=== PATIENT | male | born 1950 | race African-American/Black ===

== ENCOUNTER 2016-12-06 19:45 | Inpatient (IN) | payer MEDICARE, BC ==
[~2016-12-06] VITALS: Ht 180.3 cm; Wt 68.8 kg
[~2016-12-06 19:45] MED LIST: AMLO5TAB2 PO; ATOR20TA15 PO; CARV6.252 PO; FOSR1000 CHEW; RANI150T PO; SENS60TA PO
[2016-12-06 20:00] VITALS: PULSE 73; O2SAT 98
[2016-12-06 20:08] VITALS: BP 165/95; PULSE 70; RESP 12; TEMP 98.2; O2SAT 100
[2016-12-06] MEDS ORDERED: PROPOFOL 1000 MG/100 ML INJ 100 ML ONE (21:16)
[2016-12-06] MEDS ORDERED: MIDAZOLAM HCL 2 MG/2 ML VIAL IV PRN (21:30)
[2016-12-06] MEDS ORDERED: SODIUM CHLORIDE 0.9% FLUSH 10 ML FLUSH PRN (21:30)
[2016-12-06] MEDS ORDERED: RESP: ALBUTEROL 2.5 MG/IPRATROPIUM 0.5 MG NEB (PRN) INH (21:30)
[2016-12-06] MEDS ORDERED: MIDAZOLAM 100 MG/ML INJ 100 ML IV SCH (21:30)
[2016-12-06] MEDS ORDERED: METOCLOPRAMIDE HCL 10 MG/2 ML VIAL IV PRN (21:30)
[2016-12-06] MEDS ORDERED: CHLORHEXIDINE GLUCONATE 2 % 1 PACK (2 CLOTHS) TOP PRN (21:30)
[2016-12-06] MEDS ORDERED: MORPHINE SULFATE 4 MG/ML INJ IV PRN (21:30)
[2016-12-06] MEDS ORDERED: niCARdipine INJ 25 MG in SODIUM CHLOR 0.9% 250 ML INJ 250 ML IV SCH (21:30)
[2016-12-06] MEDS ORDERED: ACETAMINOPHEN 325 MG TAB PO PRN (21:30)
[2016-12-06] MEDS ORDERED: ONDANSETRON HCL 4 MG/2 ML VIAL IV PRN (21:30)
[2016-12-06] MEDS ORDERED: MISCELLANEOUS NURSING INFORMATION XX SCH (21:30)
[2016-12-06 21:57] LABS: BLOOD GAS BASE EXCESS 2.7 mmol/L (-2-2); BLOOD GAS CARBOXYHEMOGLOBIN 1.5 % (0-4); BLOOD GAS HCO3 27 mmol/L (22-26); BLOOD GAS METHEMOGLOBIN 1.3 % (0-2); BLOOD GAS O2 HGB SATURATION 97 % (90-100); BLOOD GAS OXYGEN CONTENT 12.8 Vol % (12.0-20.0); BLOOD GAS PCO2 41 mmHg (38-42); BLOOD GAS PO2 165 mmHg (61-120); BLOOD GAS TOTAL HGB 9.2 G/DL (12.0-16.0); CRITICAL VALUE NO; DRAW SITE RT RADIAL; FIO2 50 %; NUMBER OF ARTERIAL PUNCTURES 1; OXYGEN DEVICE VENTILATOR; ULNAR PULSE PRESENT; VENT SETTINGS AC/12/600/PEEP5
[2016-12-06 21:58] LABS: STAT NO
[2016-12-06 22:00] VITALS: PULSE 70
[2016-12-06] MEDS: HEPARIN SODIUM - SQ 10,000 UNITS/ML VIAL SQ SCH (23:17)
[2016-12-06] MEDS: DOCUSATE SODIUM 100 MG/10 ML UDC G-TUBE SCH (23:17)
[2016-12-06] MEDS: PROPOFOL 1000 MG/100 ML INJ 100 ML IV SCH (23:18)
[2016-12-06] MEDS ORDERED: GLUCAGON 1 MG/ML VIAL OTHER PRN (23:45)
[2016-12-07] VITALS (18 sets, daily range): BP systolic 124–178; BP diastolic 64–90; PULSE 67–96; RESP 12–26; TEMP 97–98.8; O2SAT 97–100
--- NOTE | 2016-12-07 00:16 | HHI.HP ---
HPI Service Critical Care Medicine This note is for service provided on December 06, 2016 Primary Care Physician No Primary Care Physician Admission Diagnosis Diagnosis: Travel History International Travel<30 Days: No Contact w/Intl Traveler <30 Da: No Traveled to Known Affected Are: No History of Present Illness 66-year-old male presents for respiratory distress and failure. He has end-stage renal disease on dialysis and he had dialysis today. After resting comfortably at home he developed acute respiratory distress and respiratory failure. Ambulance service came to his house. Tried to administer BiPAP but was not successful in improving his respiratory distress. He was transported [facility] emergency department for evaluation of respiratory failure. Upon arrival here in emergency room this patient was diaphoretic and could not speak in complete sentences. Obviously in respiratory distress. Both lungs showed decreased breath sounds. The patient was intubated by emergency department attending and transferred here for high level of care. Review of Systems ROS Unable to obtain patient is sedated and intubated Past Family Social History Allergies: Coded Allergies: No Known Allergies (Unverified , 12/06/16) Past Medical History End-stage renal disease on dialysis The rest unobtainable Past Surgical History Unobtainable Reported Medications Reported Meds & Active Scripts Active Reported Ranitidine (Ranitidine HCl) 150 Mg Tab 150 Mg PO BID Amlodipine (Amlodipine Besylate) 5 Mg Tab 5 Mg PO BID Fosrenol (Lanthanum Carbonate) 1,000 Mg Tab 1,000 Mg CHEW TIDPC Sensipar (Cinacalcet) 60 Mg Tab 60 Mg PO DAILY Atorvastatin (Atorvastatin Calcium) 20 Mg Tab 20 Mg PO HS Carvedilol 6.25 Mg Tab 6.25 Mg PO BID Active Ordered Medications Current Medications Medications (Trade) Dose Ordered Sig/[place] Route PRN Reason Start Time Stop Time Status Last Admin Dose Admin Pneumococcal Polyvalent Vaccine 25 mcg 25 mcg ONCE ONCE IM 12/07/16 10:00 12/07/16 10:01 Propofol 100 ml @ 0 mls/hr TITRATE IV 12/06/16 21:30 12/06/16 23:18 Nicardipine HCl/ Sodium Chloride (Cardene Inj/NS 250 ml Inj) 260 ml @ 0 mls/hr TITRATE IV 12/06/16 21:30 Sodium Chloride (NS Flush) 2 ml UNSCH PRN .XX FLUSH AFTER USING IV ACCESS 12/06/16 21:30 Sodium Chloride (NS Flush) 2 ml BID .XX 12/07/16 09:00 Acetaminophen (Tylenol) 650 mg Q6H PRN PO PAIN 1-10 AND/OR FEVER >101F 12/06/16 21:30 Morphine Sulfate (Morphine Inj) 2 mg Q2H PRN IV PAIN SCALE 6 TO 10 12/06/16 21:30 Famotidine (Pepcid Inj) 20 mg Q12HR IV PUSH 12/07/16 09:00 Midazolam HCl (Versed Inj) 2 mg Q1H PRN IV SEDATION 12/06/16 21:30 Ondansetron HCl (Zofran Inj) 4 mg Q6H PRN IV NAUSEA OR VOMITING 12/06/16 21:30 Metoclopramide HCl (Reglan Inj) 10 mg Q6H PRN IV NAUSEA OR VOMITING 12/06/16 21:30 Docusate Sodium (Colace Liq) 100 mg Q12HR G-TUBE 12/06/16 21:30 12/06/16 23:17 Heparin Sodium (Porcine) (Heparin Inj) 5,000 units Q12H SQ 12/06/16 22:00 12/06/16 23:17 Miscellaneous Information 1 Q361D XX 12/06/16 21:30 12/06/16 21:30 Chlorhexidine Gluconate (Chlorhexidine 2% Cloth) 3 pack Taper DAILY@04 TOP 12/07/16 04:00 12/03/17 03:59 Chlorhexidine Gluconate 3 pack 3 pack UNSCH PRN TOP HYGIENIC CARE 12/06/16 21:30 Midazolam HCl (Versed Inj) 100 ml @ 0 mls/hr TITRATE IV 12/06/16 21:30 Dextrose (D50w (Vial) Inj) 25 ml UNSCH PRN IV PUSH HYPOGLYCEMIA-SEE COMMENTS 12/06/16 23:45 12/07/16 00:20 Glucagon (Glucagon Inj) 1 mg UNSCH PRN OTHER HYPOGLYCEMIA-SEE COMMENTS 12/06/16 23:45 Family History Unobtainable Social History Unobtainable Physical Exam Vital Signs Vital Signs Date Time Temp Pulse Resp B/P Pulse Ox O2 Delivery O2 Flow Rate FiO2 12/06/16 20:08 98.2 70 12 165/95 100 12/06/16 20:00 98 50 Physical Exam GENERAL: Well-nourished, well-developed patient. Sedated and intubated in no acute distress SKIN: Warm and dry. HEAD: Normocephalic. EYES: No scleral icterus. No injection or drainage. NECK: Supple, trachea midline. No JVD or lymphadenopathy. CARDIOVASCULAR: Regular rate and rhythm without murmurs, gallops, or rubs. RESPIRATORY: Breath sounds equal bilaterally. No accessory muscle use. GASTROINTESTINAL: Abdomen soft, non-tender, nondistended. MUSCULOSKELETAL: No cyanosis, or edema. BACK: Nontender without obvious deformity. No CVA tenderness. EXTREMITIES: No clubbing cyanosis or edema Laboratory Laboratory Tests Test 12/06/16 21:46 Blood Gas Puncture Site RT RADIAL Blood Gas Patient Temperature 98.0 Blood Gas HCO3 27 Blood Gas Base Excess 2.7 Blood Gas Oxygen Saturation 97 Arterial Blood pH 7.43 Arterial Blood Partial 41 Pressure CO2 Arterial Blood Partial 165 Pressure O2 Arterial Blood Oxygen Content 12.8 Arterial Blood 1.5 Carboxyhemoglobin Arterial Blood Methemoglobin 1.3 Blood Gas Hemoglobin 9.2 Oxygen Delivery Device VENTILATOR Blood Gas Ventilator Setting AC/12/600/PEEP5 Blood Gas Inspired Oxygen 50 Assessment and Plan Assessment and Plan Respiratory failure - Fluid overload - Probably diastolic dysfunction from uncontrolled hypertension - Mechanical ventilation - Probable dialysis tomorrow morning - SBT after dialysis Hypertension - Resume home meds - Cardene drip - SBP goal is 160 - Repeat 2-D echo ESRD - HD per orthotics prosthetics technician Dyslipidemia - Resume home dose of statin DVT GI prophylaxis - Subcutaneous heparin and Pepcid Critical Care: The total critical care time was 35 minutes. Time to perform other separately billable procedures was not included in the critical care time. Ritesh Chen MD December 07, 2016 00:16
[2016-12-07] MEDS: DEXTROSE 50% IN WATER 50 ML VIAL(D50) IV PUSH PRN ×2 (00:20→06:22)
[2016-12-07 03:54] LABS: AUTOMATED NEUTROPHIL # 4.1 TH/MM3 (1.8-7.7); BASOPHIL % 0.5 % (0.0-2.0); EOSINOPHIL # 0.1 TH/MM3 (0-0.4); EOSINOPHIL % 1.7 % (0.0-4.0); HEMATOCRIT 26.6 % (39.0-51.0); HEMO FLAGS DIFF FINAL; LYMPH % 21.7 % (9.0-44.0); LYMPHOCYTE # 1.3 TH/MM3 (1.0-4.8); MEAN CELL VOLUME 84.1 FL (80.0-100.0); MEAN CORPUSCULAR HEMOGLOBIN 27.7 PG (27.0-34.0); MEAN CORPUSCULAR HGB CONC 32.9 % (32.0-36.0); MONO % 9.5 % (0.0-8.0); NEUT % 66.6 % (16.0-70.0); PLATELET COUNT 143 TH/MM3 (150-450); RED BLOOD COUNT 3.17 MIL/MM3 (4.50-5.90); RED CELL DISTRIBUTION WIDTH 17.3 % (11.6-17.2); WHITE BLOOD COUNT 6.2 TH/MM3 (4.0-11.0)
[2016-12-07] MEDS: CHLORHEXIDINE GLUCONATE 2 % 1 PACK (2 CLOTHS) TOP SCH (04:00)
[2016-12-07 04:02] LABS: PROTHROMBIN TIME - PATIENT 11.6 SEC (9.8-11.6)
[2016-12-07 04:16] LABS: ALT (GPT) 19 U/L (12-78); ANION GAP 8 MEQ/L (5-15); AST (GOT) 18 U/L (15-37); BICARBONATE 28.6 MEQ/L (21.0-32.0); BLOOD UREA NITROGEN 17 MG/DL (7-18); CHLORIDE 103 MEQ/L (98-107); MAGNESIUM 1.9 MG/DL (1.5-2.5); POTASSIUM 3.6 MEQ/L (3.5-5.1); SODIUM (NA) 140 MEQ/L (136-145)
[2016-12-07 04:18] LABS: ALKALINE PHOSPHATASE 88 U/L (45-117); GLOMERULAR FILTRATION RATE 9 ML/MIN (>89); TOTAL BILIRUBIN ADULT 0.4 MG/DL (0.2-1.0)
[2016-12-07] MEDS: PROPOFOL 1000 MG/100 ML INJ 100 ML IV SCH (06:22)
--- NOTE | 2016-12-07 06:53 | RADRPT ---
EXAM DATE/TIME: 12/07/2016 05:53 [facility] COMPARISON: CHEST SINGLE AP, December 06, 2016, 16:41. INDICATIONS : Shortness of breath. MEDICAL HISTORY : None. SURGICAL HISTORY : None. ENCOUNTER: Subsequent ACUITY: 2 days PAIN SCORE: 0/10 LOCATION: Bilateral chest FINDINGS: A single portable frontal view the chest shows the tip of the endotracheal tube 3 cm from the victorina. Nasogastric tube courses off the inferior margin of the film. A new left lower lobe consolidation is observed. Tiny left effusion is new. Right lung is clear. Heart is at the upper limits of normal. CONCLUSION: New left lower lobe infiltrate and left effusion. Eb Bonner Jr., MD on December 07, 2016 at 6:51 Board Certified Radiologist. This report was verified electronically.
[2016-12-07] MEDS ORDERED: INSULIN ASPART SUPPLEMENTAL SCALE SQ SCH (07:00)
[2016-12-07] MEDS: FAMOTIDINE 20 MG/2 ML VIAL IV PUSH SCH ×2 (08:08→20:36)
[2016-12-07] MEDS: DOCUSATE SODIUM 100 MG/10 ML UDC G-TUBE SCH ×2 (08:08→20:36)
[2016-12-07] MEDS: SODIUM CHLORIDE 0.9% FLUSH 10 ML FLUSH SCH ×2 (08:09→20:36)
[2016-12-07] MEDS ORDERED: amLODIPine BESYLATE 5 MG TAB PO SCH (09:00)
[2016-12-07] MEDS: cefTRIAXone INJ 1,000 MG in SODIUM CHLORIDE 0.9% INJ 100 ML IV SCH (09:21)
[2016-12-07] MEDS: HEPARIN SODIUM - SQ 10,000 UNITS/ML VIAL SQ SCH ×2 (09:21→20:36)
[2016-12-07] MEDS ORDERED: PNEUMOCOCCAL POLYVALENT INJ 25 MCG/0.5 ML SYR IM ONE (10:00)
[2016-12-07] MEDS: INSULIN ASPART SUPPLEMENTAL SCALE SQ SCH ×2 (13:00→19:00)
[2016-12-07 13:06] LABS: BLOOD GAS BASE EXCESS 2.8 mmol/L (-2-2); BLOOD GAS CARBOXYHEMOGLOBIN 1.8 % (0-4); BLOOD GAS HCO3 26 mmol/L (22-26); BLOOD GAS METHEMOGLOBIN 1.3 % (0-2); BLOOD GAS O2 HGB SATURATION 95 % (90-100); BLOOD GAS OXYGEN CONTENT 13.3 Vol % (12.0-20.0); BLOOD GAS PCO2 38 mmHg (38-42); BLOOD GAS PO2 101 mmHg (61-120); BLOOD GAS TOTAL HGB 9.8 G/DL (12.0-16.0); CRITICAL VALUE NO; DRAW SITE RT RADIAL; FIO2 35 %; NUMBER OF ARTERIAL PUNCTURES 1; OXYGEN DEVICE VENTILATOR; STAT NO; TEMP CORR TO 98.6; ULNAR PULSE PRESENT; VENT SETTINGS CPAP/10/+5
[2016-12-07] MEDS ORDERED: SODIUM CHLOR 0.9% 1000 ML INJ 1,000 ML IV PRN ×3 (14:37)
[2016-12-07] MEDS ORDERED: ACETAMINOPHEN 325 MG TAB PO PRN (14:45)
[2016-12-07] MEDS ORDERED: GENTAMICIN SULFATE (DIALYSIS USE ONLY) 20 MG/2 ML VIAL IV PRN (14:45)
[2016-12-07] MEDS ORDERED: SODIUM CHLORIDE 0.9% FLUSH 10 ML FLUSH IV FLUSH PRN (14:45)
[2016-12-07] MEDS ORDERED: ONDANSETRON HCL 4 MG/2 ML VIAL IV PRN (14:45)
[2016-12-07] MEDS ORDERED: cloNIDine HCL 0.1 MG TAB PO PRN (14:45)
[2016-12-07] MEDS ORDERED: MANNITOL 12.5 GM/50 ML VIAL IV PRN (14:45)
[2016-12-07] MEDS ORDERED: ALBUMIN HUMAN 25% 25 GM/100 ML BAGP IV PRN (14:45)
[2016-12-07] MEDS ORDERED: HEPARIN SODIUM - IV 10,000 UNITS/10 ML VIAL PRN (14:45)
[2016-12-07] MEDS ORDERED: NITROGLYCERIN 0.4 MG SL 25 TABS/BTL SL PRN (14:45)
[2016-12-07] MEDS ORDERED: diphenhydrAMINE HCL 25 MG CAP PO PRN (14:45)
[2016-12-07] MEDS ORDERED: HEPARIN SODIUM - IV 10,000 UNITS/10 ML VIAL IVF PRN (14:45)
--- NOTE | 2016-12-07 15:30 | EC ---
Study Study Date:12/07/2016 STUDY CONCLUSIONS SUMMARY - Left ventricle: The cavity size was normal. Wall thickness was normal. Systolic function was normal. The estimated ejection fraction was in the range of 50% to 55%. Wall motion was normal; there were no regional wall motion abnormalities. - Aortic valve: Mild to moderate regurgitation. - Mitral valve: Mild regurgitation. - Right ventricle: The cavity size was mildly dilated. Wall thickness was normal. If LV function is below 40, please consider prescribing an ACEI or ARB or document rationale for non-use. PROCEDURE DATA STUDY STATUS: Elective. Procedure: Transthoracic echocardiography. Image quality was good. Scanning was performed from the parasternal, apical, and subcostal acoustic windows. Study completion: The patient tolerated the procedure well. Transthoracic echocardiography. M-mode, complete 2D, complete spectral Doppler, and color Doppler. Patient status: Inpatient. CARDIAC ANATOMY LEFT VENTRICLE: The cavity size was normal. Wall thickness was normal. Systolic function was normal. The estimated ejection fraction was in the range of 50% to 55%. Wall motion was normal; there were no regional wall motion abnormalities. AORTIC VALVE: Trileaflet; normal thickness leaflets. Doppler: Transvalvular velocity was within the normal range. There was no stenosis. Mild to moderate regurgitation. Peak gradient: 14mm Hg (S). AORTA: Aortic root: The aortic root was normal in size. MITRAL VALVE: Structurally normal valve. Doppler: Transvalvular velocity was within the normal range. There was no evidence for stenosis. Mild regurgitation. Peak gradient: 4mm Hg (D). LEFT ATRIUM: The atrium was normal in size. RIGHT VENTRICLE: The cavity size was mildly dilated. Wall thickness was normal. PULMONIC VALVE: Doppler: Transvalvular velocity was within the normal range. There was no evidence for stenosis. No regurgitation. TRICUSPID VALVE: Structurally normal valve. Doppler: Transvalvular velocity was within the normal range. No regurgitation. PULMONARY ARTERY: The main pulmonary artery was normal-sized. Systolic pressure was within the normal range. RIGHT ATRIUM: The atrium was normal in size. PERICARDIUM: There was no pericardial effusion. SYSTEMIC VEINS: Inferior vena cava: The vessel was normal in size. BASIC MEASUREMENTS ADULT Normal Left ventricle LV internal dimension, ED, chordal level, *55.6 mm 43-52 PLAX LV internal dimension, ES, chordal level, *44.6 mm 23-38 PLAX Fractional shortening, chordal level, PLAX *20 % >29 LV posterior wall thickness, ED 8.07 mm IVS/LVPW ratio, ED 1.24 <1.3 Ventricular septum Septal thickness, ED 9.99 mm Left atrium Anterior-posterior dimension 36 mm Right ventricle RV internal dimension, ED, PLAX 28.1 mm 19-38 DOPPLER MEASUREMENTS ADULT Normal Main pulmonary artery Pressure, S 23 mm Hg =30 Aortic valve Peak velocity, S 185 cm/s Peak gradient, S 14 mm Hg Mitral valve Peak E-wave velocity 94.3 cm/s Peak A-wave velocity 71.3 cm/s Peak gradient, D 4 mm Hg Peak E/A ratio 1.3 Maximal regurgitant velocity 438 cm/s Tricuspid valve Regurgitant peak velocity 214 cm/s Peak RV-RA gradient, S 18 mm Hg Maximal regurgitant velocity 214 cm/s Systemic veins Estimated CVP 5 mm Hg Right ventricle RV pressure, S 23 mm Hg <30 LEGEND: Mean values are shown as u=mean value. Asterisk (*) sewell values outside specified normal range. Prepared and signed by Crystal Yates [id number]
[2016-12-07] MEDS: RESP: ALBUTEROL 2.5 MG/IPRATROPIUM 0.5 MG NEB (SCH) NEB ×3 (16:10→23:54)
--- NOTE | 2016-12-07 19:27 | PD.CONS ---
HPI Service Nephrology Consult Requested By Dr. Chen Reason for Consult ESRD on HD Primary Care Physician No Primary Care Physician History of Present Illness The patient is a 66 yo AA male who was EVAC'd to the [facility] emergency room 12/06/16 after his regularly scheduled HD as he developed sudden shortness of breath. Upon arrival to the ED, he was intubated and transported to [facility] for further care. He says he had his regular scheduled HD this past Tuesday for an uneventful session. Denies any recently missed treatments and states that his typical UF is 1-2L. He typically dialyzes at [facility] in [place] and has been on HD x12 years. He has minimal UOP. His BP has been elevated recently-- no recent changes in medications to his knowledge. During interview, the patient was still intubated but not sedated with plans to extubate soon. Ex- and son present during exam. (Pastora Crow) Review of Systems Respiratory: COMPLAINS OF: Cough, Sputum production, Shortness of breath ( Pastora Crow) Past Family Social History Allergies: Coded Allergies: No Known Allergies (Unverified , 12/06/16) Past Medical History ESRD on HD HTN Past Surgical History AVF placement Reported Medications Reported Meds & Active Scripts Active Reported Ranitidine (Ranitidine HCl) 150 Mg Tab 150 Mg PO BID Amlodipine (Amlodipine Besylate) 5 Mg Tab 5 Mg PO BID Fosrenol (Lanthanum Carbonate) 1,000 Mg Tab 1,000 Mg CHEW TIDPC Sensipar (Cinacalcet) 60 Mg Tab 60 Mg PO DAILY Atorvastatin (Atorvastatin Calcium) 20 Mg Tab 20 Mg PO HS Carvedilol 6.25 Mg Tab 6.25 Mg PO BID Active Ordered Medications Current Medications Medications (Trade) Dose Ordered Sig/[place] Route Start Time Stop Time Status Last Admin (NS Flush) 2 ml UNSCH PRN .XX 12/06/16 21:30 (NS Flush) 2 ml BID .XX 12/07/16 09:00 12/07/16 08:09 (Tylenol) 650 mg Q6H PRN PO 12/06/16 21:30 (Morphine Inj) 2 mg Q2H PRN IV 12/06/16 21:30 (Pepcid Inj) 20 mg Q12HR IV PUSH 12/07/16 09:00 12/07/16 08:08 (Zofran Inj) 4 mg Q6H PRN IV 12/06/16 21:30 (Reglan Inj) 10 mg Q6H PRN IV 12/06/16 21:30 (Colace Liq) 100 mg Q12HR G-TUBE 12/06/16 21:30 12/07/16 08:08 (Heparin Inj) 5,000 units Q12H SQ 12/06/16 22:00 12/07/16 09:21 Miscellaneous Information 1 Q361D XX 12/06/16 21:30 12/06/16 21:30 (Chlorhexidine 2% Cloth) 3 pack Taper DAILY@04 TOP 12/07/16 04:00 12/03/17 03:59 12/07/16 04:00 (Chlorhexidine 2% Cloth) 3 pack UNSCH PRN TOP 12/06/16 21:30 (D50w (Vial) Inj) 25 ml UNSCH PRN IV PUSH 12/06/16 23:45 12/07/16 06:22 (Glucagon Inj) 1 mg UNSCH PRN OTHER 12/06/16 23:45 (NovoLOG SUPPLEMENTAL SCALE) 1 Q6H SQ 12/07/16 13:00 (Norvasc) 5 mg DAILY PO 12/07/16 09:00 12/07/16 09:21 Hydralazine HCl 10 mg 10 mg Q6H PRN IV PUSH 12/07/16 09:00 (Rocephin Inj/NS Inj) 100 ml @ 200 mls/hr Q24H IV 12/07/16 09:00 12/07/16 09:21 Atorvastatin Calcium 20 mg 20 mg HS PO 12/07/16 21:00 (NS 1000 ml Inj) 1,000 ml @ 0 mls/hr Q0M PRN IV 12/07/16 14:37 Heparin Sodium (Porcine) 8000 units 8,000 units UNSCH PRN IVF 12/07/16 14:45 Sodium Chloride 1,000 ml @ 200 mls/hr Q5H PRN IV 12/07/16 14:37 (NS 1000 ml Inj) 1,000 ml @ 0 mls/hr Q0M PRN IV 12/07/16 14:37 (Mannitol Inj) 12.5 gm UNSCH PRN IV 12/07/16 14:45 (Albumin 25% Inj) 25 gm UNSCH PRN IV 12/07/16 14:45 (NS Flush) 5 ml UNSCH PRN IV FLUSH 12/07/16 14:45 (Heparin Inj) UNSCH PRN .XX 12/07/16 14:45 (Gentamicin (Dialysis) Inj) 20 mg UNSCH PRN IV 12/07/16 14:45 (Zofran Inj) 4 mg UNSCH PRN IV 12/07/16 14:45 (Tylenol) 650 mg UNSCH PRN PO 12/07/16 14:45 (Benadryl) 25 mg UNSCH PRN PO 12/07/16 14:45 (Nitrostat Sl) 0.4 mg UNSCH PRN SL 12/07/16 14:45 (Catapres) 0.1 mg UNSCH PRN PO 12/07/16 14:45 (Gelfoam 12 Mm/7 Mm Top) 1 foam UNSCH PRN TOP 12/07/16 14:45 Family History DM in mother and father No one with ESRD to knowledge Social History Denies tobacco use No illicits No EtOH (Pastora Crow) Physical Exam Vital Signs Vital Signs Date Time Temp Pulse Resp B/P Pulse Ox O2 Delivery O2 Flow Rate FiO2 12/07/16 18:00 90 12/07/16 16:13 98 Nasal Cannula 4.00 12/07/16 16:00 90 12/07/16 16:00 98.8 90 20 157/73 98 12/07/16 14:00 87 12/07/16 13:20 97 Nasal Cannula 4 12/07/16 12:00 98.6 12/07/16 12:00 82 12/07/16 10:00 79 12/07/16 09:39 35 12/07/16 09:39 100 35 12/07/16 08:00 73 12/07/16 08:00 98.4 12/07/16 06:00 69 12/07/16 04:22 99 35 12/07/16 04:00 67 12/07/16 04:00 97.0 67 12 135/65 100 12/07/16 02:00 68 12/07/16 01:36 99 50 12/07/16 00:00 97.5 71 12 124/64 100 12/07/16 00:00 71 12/06/16 22:00 70 12/06/16 20:08 98.2 70 12 165/95 100 12/06/16 20:00 73 12/06/16 20:00 98 50 Physical Exam GENERAL: Intubated, but not sedated. NAD. Resting comfortably and able to answer questions by writing or nodding. SKIN: Warm and dry. HEAD: Atraumatic. Normocephalic. EYES: Pupils equal and round. No scleral icterus. No injection or drainage. ENT: No nasal bleeding or discharge. Mucous membranes pink and moist. NECK: Trachea midline. No JVD. CARDIOVASCULAR: Regular rate and rhythm. RESPIRATORY: No accessory muscle use. Decreased breath sounds bibasilar. No rales or crackles.. GASTROINTESTINAL: Abdomen soft, non-tender, nondistended. Hepatic and splenic margins not palpable. MUSCULOSKELETAL: Extremities without clubbing, cyanosis, or edema. No obvious deformities. NEUROLOGICAL: Awake and alert. PSYCHIATRIC: Appropriate mood and affect; insight and judgment normal. Laboratory Laboratory Tests Test 12/06/16 12/07/16 12/07/16 12/07/16 21:46 00:50 02:36 09:01 Blood Gas Puncture Site RT RADIAL Blood Gas Patient Temperature 98.0 Blood Gas HCO3 27 Blood Gas Base Excess 2.7 Blood Gas Oxygen Saturation 97 Arterial Blood pH 7.43 Arterial Blood Partial 41 Pressure CO2 Arterial Blood Partial 165 Pressure O2 Arterial Blood Oxygen Content 12.8 Arterial Blood 1.5 Carboxyhemoglobin Arterial Blood Methemoglobin 1.3 Blood Gas Hemoglobin 9.2 Oxygen Delivery Device VENTILATOR Blood Gas Ventilator Setting AC/12/600/PEEP5 Blood Gas Inspired Oxygen 50 Nasal Screen MRSA (PCR) MRSA NOT DETECTED White Blood Count 6.2 Red Blood Count 3.17 Hemoglobin 8.8 Hematocrit 26.6 Mean Corpuscular Volume 84.1 Mean Corpuscular Hemoglobin 27.7 Mean Corpuscular Hemoglobin 32.9 Concent Red Cell Distribution Width 17.3 Platelet Count 143 Mean Platelet Volume 8.6 Neutrophils (%) (Auto) 66.6 Lymphocytes (%) (Auto) 21.7 Monocytes (%) (Auto) 9.5 Eosinophils (%) (Auto) 1.7 Basophils (%) (Auto) 0.5 Neutrophils # (Auto) 4.1 Lymphocytes # (Auto) 1.3 Monocytes # (Auto) 0.6 Eosinophils # (Auto) 0.1 Basophils # (Auto) 0.0 CBC Comment DIFF FINAL Differential Comment Prothrombin Time 11.6 Prothromb Time International 1.0 Ratio Sodium Level 140 Potassium Level 3.6 Chloride Level 103 Carbon Dioxide Level 28.6 Anion Gap 8 Blood Urea Nitrogen 17 Creatinine 7.80 Estimat Glomerular Filtration 9 Rate Random Glucose 66 Calcium Level 8.6 Phosphorus Level 3.2 Magnesium Level 1.9 Total Bilirubin 0.4 Aspartate Amino Transf 18 (AST/SGOT) Alanine Aminotransferase 19 (ALT/SGPT) Alkaline Phosphatase 88 Troponin I 0.10 0.08 Total Protein 6.2 Albumin 2.7 Total Creatine Kinase 88 Test 12/07/16 12/07/16 12:53 16:26 Blood Gas Puncture Site RT RADIAL Blood Gas Patient Temperature 98.6 Blood Gas HCO3 26 Blood Gas Base Excess 2.8 Blood Gas Oxygen Saturation 95 Arterial Blood pH 7.46 Arterial Blood Partial 38 Pressure CO2 Arterial Blood Partial 101 Pressure O2 Arterial Blood Oxygen Content 13.3 Arterial Blood 1.8 Carboxyhemoglobin Arterial Blood Methemoglobin 1.3 Blood Gas Hemoglobin 9.8 Oxygen Delivery Device VENTILATOR Blood Gas Ventilator Setting CPAP/10/+5 Blood Gas Inspired Oxygen 35 25-Hydroxy Vitamin D Total 8.3 Parathyroid Hormone (Intact) 675.0 Date/Time Procedure Status Source Growth 12/07/16 09:45 Gram Stain Received Sputum Endotracheal Pending 12/07/16 09:45 Sputum Culture Received Sputum Endotracheal Pending (Pastora Crow) Result Diagram: 12/07/16 0236 12/07/16 0236 Imaging Last Impressions Chest X-Ray 12/07/16 0000 Signed Impressions: Service Date/Time: Wednesday, December 07, 2016 05:53 - CONCLUSION: New left lower lobe infiltrate and left effusion. Eb Bonner Jr., MD (Pastora Crow) Assessment and Plan Problem List: (1) ESRD (end stage renal disease) on dialysis Plan: Will continue on HD MWF as before. No emergent need for HD today. To continue on Fosrenol & Sensipar as outpatient. Will f/u with CBC and Fe panel. Epogen as indicated if needed. Medications should be adjusted for the patient's ESRD. Avoid gadolinium. (2) Respiratory failure with hypoxia Plan: CXR reviewed. No overt failure or vascular congestion. Echo reviewed. Infiltrate--PNA? Will defer to CC (3) Hypertension Plan: Improved today. Monitor and adjust to keep BP <150/90. (Pastora Crow) Assessment and Plan The exam, history, and the medical decision-making described in the above note were completed with the assistance of the PA-C. I reviewed and agree with the findings presented. I attest that I had a [id number] encounter with the patient on the same day, and personally performed and documented my assessment and findings in the medical record. (Speedy Johnson MD) Pastora Crow December 07, 2016 19:27 Speedy Johnson MD December 08, 2016 16:58
[2016-12-07] MEDS: hydrALAZINE HCL 20 MG/ML VIAL IV PUSH PRN (20:37)
[2016-12-07] MEDS ORDERED: ATORVASTATIN 20 MG TAB PO SCH (21:00)
[2016-12-08] VITALS (28 sets, daily range): BP systolic 152–204; BP diastolic 71–101; PULSE 76–113; RESP 16–46; TEMP 98.1–99.3; O2SAT 93–100
[2016-12-08] MEDS: INSULIN ASPART SUPPLEMENTAL SCALE SQ SCH ×4 (01:00→18:02)
[2016-12-08] MEDS: RESP: ALBUTEROL 2.5 MG/IPRATROPIUM 0.5 MG NEB (SCH) NEB ×5 (03:34→20:52)
[2016-12-08] MEDS: CHLORHEXIDINE GLUCONATE 2 % 1 PACK (2 CLOTHS) TOP SCH (04:00)
[2016-12-08 04:15] LABS: BASOPHIL % 0.4 % (0.0-2.0); EOSINOPHIL # 0.2 TH/MM3 (0-0.4); EOSINOPHIL % 2.7 % (0.0-4.0); HEMATOCRIT 28.7 % (39.0-51.0); HEMO FLAGS DIFF FINAL; LYMPH % 21.1 % (9.0-44.0); LYMPHOCYTE # 1.3 TH/MM3 (1.0-4.8); MEAN CELL VOLUME 82.8 FL (80.0-100.0); MEAN CORPUSCULAR HEMOGLOBIN 27.9 PG (27.0-34.0); MEAN CORPUSCULAR HGB CONC 33.8 % (32.0-36.0); MONO % 10.2 % (0.0-8.0); NEUT % 65.6 % (16.0-70.0); PLATELET COUNT 171 TH/MM3 (150-450); RED BLOOD COUNT 3.47 MIL/MM3 (4.50-5.90); RED CELL DISTRIBUTION WIDTH 17.1 % (11.6-17.2); WHITE BLOOD COUNT 6.2 TH/MM3 (4.0-11.0)
[2016-12-08 04:49] LABS: ANION GAP 11 MEQ/L (5-15); BICARBONATE 27.7 MEQ/L (21.0-32.0); BLOOD UREA NITROGEN 28 MG/DL (7-18); CHLORIDE 100 MEQ/L (98-107); FERRITIN 776 NG/ML (26-388); GLOMERULAR FILTRATION RATE 6 ML/MIN (>89); POTASSIUM 3.8 MEQ/L (3.5-5.1); SODIUM (NA) 139 MEQ/L (136-145); TRANSFERRIN IRON PROFILE 116 MG/DL (200-360)
[2016-12-08] MEDS: hydrALAZINE HCL 20 MG/ML VIAL IV PUSH PRN ×2 (06:39→12:52)
[2016-12-08] MEDS: SODIUM CHLORIDE 0.9% FLUSH 10 ML FLUSH SCH ×2 (09:00→21:00)
--- NOTE | 2016-12-08 10:34 | HHI.CCPN ---
Subjective Remarks/Hospital Course The patient is a 66 yo AA male who was EVAC'd to the [facility] emergency room 12/06/16 after his regularly scheduled HD as he developed sudden shortness of breath. Upon arrival to the ED, he was intubated and transported to [facility] for further care. He says he had his regular scheduled HD this past Tuesday for an uneventful session. Denies any recently missed treatments and states that his typical UF is 1-2L. He typically dialyzes at [facility] in [place] and has been on HD x12 years. He has minimal UOP. His BP has been elevated recently-- no recent changes in medications to his knowledge. During interview, the patient was still intubated but not sedated with plans to extubate soon. Subjective 12/08: Resting in bed in no acute distress. Denies chest pain shortness of breath. Objective Vital Signs Date Time Temp Pulse Resp B/P Pulse Ox O2 Delivery O2 Flow Rate FiO2 12/08/16 08: 94 21 12/08/16 06:00 78 12/08/16 04:00 98.1 18 156/75 12/07/16 19:52 Nasal Cannula 2.00 Intake and Output 12/07/16 12/07/16 12/08/16 08:00 16:00 00:00 Intake Total 339 ml 328 ml 120 ml Output Total 0 ml 0 ml Balance 339 ml 328 ml 120 ml Result Diagram: 12/08/16 0321 12/08/16 0321 Other Results Microbiology Date/Time Procedure Status Source Growth 12/07/16 09:45 Gram Stain - Final Resulted Sputum Endotracheal 12/07/16 09:45 Sputum Culture Resulted Sputum Endotracheal Pending Laboratory Tests Test 12/07/16 12:53 Blood Gas Puncture Site RT RADIAL Blood Gas Patient Temperature 98.6 Blood Gas HCO3 26 mmol/L (22-26) Blood Gas Base Excess 2.8 mmol/L (-2-2) Blood Gas Oxygen Saturation 95 % (90-100) Arterial Blood pH 7.46 (7.380-7.420) Arterial Blood Partial 38 mmHg (38-42) Pressure CO2 Arterial Blood Partial 101 mmHg Pressure O2 (61-120) Arterial Blood Oxygen Content 13.3 Vol % (12.0-20.0) Arterial Blood 1.8 % (0-4) Carboxyhemoglobin Arterial Blood Methemoglobin 1.3 % (0-2) Blood Gas Hemoglobin 9.8 G/DL (12.0-16.0) Oxygen Delivery Device VENTILATOR Blood Gas Ventilator Setting CPAP/10/+5 Blood Gas Inspired Oxygen 35 % Imaging Last Impressions Chest X-Ray 12/07/16 0000 Signed Impressions: Service Date/Time: Wednesday, December 07, 2016 05:53 - CONCLUSION: New left lower lobe infiltrate and left effusion. Eb Bonner Jr., MD Objective Remarks GENERAL: Well-nourished, well-developed patient. Sedated and intubated in no acute distress SKIN: Warm and dry. HEAD: Normocephalic. EYES: No scleral icterus. No injection or drainage. NECK: Supple, trachea midline. No JVD or lymphadenopathy. CARDIOVASCULAR: Regular rate and rhythm without murmurs, gallops, or rubs. RESPIRATORY: Breath sounds equal bilaterally. No accessory muscle use. GASTROINTESTINAL: Abdomen soft, non-tender, nondistended. MUSCULOSKELETAL: No cyanosis, or edema. BACK: Nontender without obvious deformity. No CVA tenderness. EXTREMITIES: No clubbing cyanosis or edema A/P Assessment and Plan Neuro/Psych: Acetaminophen for fever CV: Hypertensive crisis Dyslipidemia 2-D echocardiogram revealed EF 50-55%. Moderate AR. Mild MR. Resume Coreg 6.25 twice a day Norvasc 5 mg by mouth twice a day As needed hydralazine/Nitropaste as clonidine Resp: Currently in room air. Chest x-ray with left lower lobe pleural effusion/infiltrate. See ID GI: Gastroesophageal reflux disease On Zantac 150 by mouth twice a day at home for gastroesophageal reflux disease. Renal diet : No [place] indicated Endo: Sliding-scale insulin if indicated Renal: End-stage renal disease on hemodialysis Resume Sensipar and phosphate lowering binder. Heme: Normocytic anemia with anemia of chronic kidney disease No indications for transfusion of blood products at this time ID: Currently on Rocephin day #2. FEN: Replace electrolytes as clinically indicated MSK: Out of bed/PT evaluate and treat Access - Peripheral IV Prophylax - GI - Zantac - DVT - SCD/heparin subcutaneous Critical Care: The total care time was 30 minutes. Time to perform other separately billable procedures was not included in the critical care time. Patient is stable from PICC standpoint. We'll assign care to hospitalist in a.m. 12/09. Transfer to floor Respiratory failure - Fluid overload - Probably diastolic dysfunction from uncontrolled hypertension - Mechanical ventilation - Probable dialysis tomorrow morning - SBT after dialysis Hypertension - Resume home meds - Cardene drip - SBP goal is 160 - Repeat 2-D echo ESRD - HD per back tender paper machine Dyslipidemia - Resume home dose of statin DVT GI prophylaxis - Subcutaneous heparin and Pepcid Critical Care: The total critical care time was 35 minutes. Time to perform other separately billable procedures was not included in the critical care time. Vipul Mcgill MD December 08, 2016 10:34
[2016-12-08] MEDS ORDERED: NITROGLYCERIN 2% OINT 1 GM PACKET TOPICAL PRN (11:00)
--- NOTE | 2016-12-08 11:04 | PD.TRANSFR ---
Transfer Summary Admission Date December 06, 2016 at 19:56 Transfer Date: December 08, 2016 Admitting Diagnosis End-stage renal disease on hemodialysis Diagnoses: (1) CHF (congestive heart failure) Diagnosis: Principal (2) Hypertension Diagnosis: Principal (3) ESRD (end stage renal disease) on dialysis Diagnosis: Principal (4) Respiratory failure with hypoxia Diagnosis: Principal Significant Findings 2-D echo - EF 50-55%. Moderate RV dilatation Transfer Summary/Subjective Acetaminophen for fever CV: Hypertensive crisis Dyslipidemia 2-D echocardiogram revealed EF 50-55%. Moderate AR. Mild MR. Resume Coreg 6.25 twice a day Norvasc 5 mg by mouth twice a day As needed hydralazine/Nitropaste as clonidine Resp: Currently in room air. GI: Gastroesophageal reflux disease On Zantac 150 by mouth twice a day at home for gastroesophageal reflux disease. Renal diet : No [place] indicated Endo: Sliding-scale insulin if indicated Renal: End-stage renal disease on hemodialysis Resume Sensipar and phosphate lowering binder. Heme: Normocytic anemia with anemia of chronic kidney disease No indications for transfusion of blood products at this time ID: Currently on Rocephin day #2. FEN: Replace electrolytes as clinically indicated MSK: Out of bed/PT evaluate and treat Access - Peripheral IV Prophylax - GI - Zantac - DVT - SCD/heparin subcutaneous Critical Care: The total care time was 30 minutes. Time to perform other separately billable procedures was not included in the critical care time. Patient is stable from PICC standpoint. We'll assign care to hospitalist in a.m. 12/09. Transfer to floor Respiratory failure - Fluid overload - Probably diastolic dysfunction from uncontrolled hypertension - Mechanical ventilation - Probable dialysis tomorrow morning - SBT after dialysis Hypertension - Resume home meds - Cardene drip - SBP goal is 160 - Repeat 2-D echo ESRD - HD per elementary supervisor Dyslipidemia - Resume home dose of statin DVT GI prophylaxis - Subcutaneous heparin and Pepcid Critical Care: The total critical care time was 35 minutes. Time to perform other separately billable procedures was not included in the critical care time. Objective Vital Signs Date Time Temp Pulse Resp B/P Pulse Ox O2 Delivery O2 Flow Rate FiO2 12/08/16 08:17 94 21 12/08/16 06:00 78 12/08/16 04:00 98.1 18 156/75 12/07/16 19:52 Nasal Cannula 2.00 Intake and Output 12/07/16 12/07/16 12/08/16 08:00 16:00 00:00 Intake Total 339 ml 328 ml 120 ml Output Total 0 ml 0 ml Balance 339 ml 328 ml 120 ml Result Diagram: 12/08/16 0321 12/08/16 0321 Other Results Laboratory Tests Test 12/07/16 12:53 Blood Gas Puncture Site RT RADIAL Blood Gas Patient Temperature 98.6 Blood Gas HCO3 26 mmol/L (22-26) Blood Gas Base Excess 2.8 mmol/L (-2-2) Blood Gas Oxygen Saturation 95 % (90-100) Arterial Blood pH 7.46 (7.380-7.420) Arterial Blood Partial 38 mmHg (38-42) Pressure CO2 Arterial Blood Partial 101 mmHg Pressure O2 (61-120) Arterial Blood Oxygen Content 13.3 Vol % (12.0-20.0) Arterial Blood 1.8 % (0-4) Carboxyhemoglobin Arterial Blood Methemoglobin 1.3 % (0-2) Blood Gas Hemoglobin 9.8 G/DL (12.0-16.0) Oxygen Delivery Device VENTILATOR Blood Gas Ventilator Setting CPAP/10/+5 Blood Gas Inspired Oxygen 35 % Imaging Last Impressions Chest X-Ray 12/07/16 0000 Signed Impressions: Service Date/Time: Wednesday, December 07, 2016 05:53 - CONCLUSION: New left lower lobe infiltrate and left effusion. Eb Bonner Jr., MD Objective Remarks GENERAL: Well-nourished, well-developed patient. Sedated and intubated in no acute distress SKIN: Warm and dry. HEAD: Normocephalic. EYES: No scleral icterus. No injection or drainage. NECK: Supple, trachea midline. No JVD or lymphadenopathy. CARDIOVASCULAR: Regular rate and rhythm without murmurs, gallops, or rubs. RESPIRATORY: Breath sounds equal bilaterally. No accessory muscle use. GASTROINTESTINAL: Abdomen soft, non-tender, nondistended. MUSCULOSKELETAL: No cyanosis, or edema. BACK: Nontender without obvious deformity. No CVA tenderness. EXTREMITIES: No clubbing cyanosis or edema A/P Assessment and Plan Neuro/Psych: Acetaminophen for fever CV: Hypertensive crisis Dyslipidemia 2-D echocardiogram revealed EF 50-55%. Moderate AR. Mild MR. Resume Coreg 6.25 twice a day Norvasc 5 mg by mouth twice a day As needed hydralazine/Nitropaste as clonidine Resp: Currently in room air. GI: Gastroesophageal reflux disease On Zantac 150 by mouth twice a day at home for gastroesophageal reflux disease. Renal diet : No [place] indicated Endo: Sliding-scale insulin if indicated Renal: End-stage renal disease on hemodialysis Resume Sensipar and phosphate lowering binder. Heme: Normocytic anemia with anemia of chronic kidney disease No indications for transfusion of blood products at this time ID: Currently on Rocephin day #2. FEN: Replace electrolytes as clinically indicated MSK: Out of bed/PT evaluate and treat Access - Peripheral IV Prophylax - GI - Zantac - DVT - SCD/heparin subcutaneous Critical Care: The total care time was 30 minutes. Time to perform other separately billable procedures was not included in the critical care time. Patient is stable from PICC standpoint. We'll assign care to hospitalist in a.m. 12/09. Transfer to floor Respiratory failure - Fluid overload - Probably diastolic dysfunction from uncontrolled hypertension - Mechanical ventilation - Probable dialysis tomorrow morning - SBT after dialysis Hypertension - Resume home meds - Cardene drip - SBP goal is 160 - Repeat 2-D echo ESRD - HD per elementary supervisor Dyslipidemia - Resume home dose of statin DVT GI prophylaxis - Subcutaneous heparin and Pepcid Critical Care: The total critical care time was 35 minutes. Time to perform other separately billable procedures was not included in the critical care time. Vipul Mcgill MD December 08, 2016 11:04
[2016-12-08] MEDS: DOCUSATE SODIUM 100 MG/10 ML UDC G-TUBE SCH ×2 (12:12→21:00)
[2016-12-08] MEDS: cefTRIAXone INJ 1,000 MG in SODIUM CHLORIDE 0.9% INJ 100 ML IV SCH (12:12)
[2016-12-08] MEDS: HEPARIN SODIUM - SQ 10,000 UNITS/ML VIAL SQ SCH ×2 (12:12→21:56)
[2016-12-08] MEDS: GELATIN 12 MM/7 MM FOAM TOP PRN (12:25)
[2016-12-08] MEDS: LANTHANUM CARBONATE 500 MG CHEWABLE TABLET CHEW SCH ×2 (12:53→18:02)
--- NOTE | 2016-12-08 17:23 | HHI.NPPN ---
Subjective History of Present Illness The patient is a 66 yo AA male who was EVAC'd to the [facility] emergency room 12/06/16 after his regularly scheduled HD as he developed sudden shortness of breath. Upon arrival to the ED, he was intubated and transported to [facility] for further care. He says he had his regular scheduled HD this past Tuesday for an uneventful session. Denies any recently missed treatments and states that his typical UF is 1-2L. He typically dialyzes at [facility] in [place] and has been on HD x12 years. He has minimal UOP. His BP has been elevated recently-- no recent changes in medications to his knowledge. Ex- and son present during exam. Interval History Patient extubated. And in good spirits. Feeling much better. He indicated to me that his blood pressure has been somewhat elevated even prior to this admission between dialysis treatments. He has been compliant with his hypertensive regimen. Objective Data Data 12/07/16 12/08/16 19:00 07:00 Intake Total 328 ml 240 ml Output Total 0 ml Balance 328 ml 240 ml Intake Oral 240 ml IV Total 208 ml 0 ml Other 120 ml Output Urine Total 0 ml # Bowel Movements 0 Vital Signs Date Time Temp Pulse Resp B/P Pulse Ox O2 Delivery O2 Flow Rate FiO2 12/08/16 12:15 100 41 204/101 97 12/08/16 12:10 98 25 181/92 97 12/08/16 12:00 91 46 178/88 97 12/08/16 11:45 83 20 186/87 97 12/08/16 11:30 84 19 178/91 100 12/08/16 11:15 84 21 165/79 95 12/08/16 11:00 85 18 166/80 94 12/08/16 10:45 89 25 177/86 97 12/08/16 10:30 90 28 181/86 96 12/08/16 10:16 84 18 177/83 96 12/08/16 10:15 89 24 189/94 96 12/08/16 10:00 76 45 161/73 96 12/08/16 09:45 80 39 164/77 96 12/08/16 09:30 78 39 177/83 97 12/08/16 09:15 76 18 175/84 96 12/08/16 09:00 79 16 162/78 95 12/08/16 08:45 81 19 160/82 94 12/08/16 08:30 81 18 169/84 100 12/08/16 08:17 94 21 12/08/16 08:15 85 20 170/83 95 12/08/16 08:00 81 18 153/73 93 12/08/16 06:00 78 12/08/16 04:00 79 12/08/16 04:00 98.1 79 18 156/75 98 12/08/16 02:00 80 12/08/16 00:00 98.6 83 20 152/71 99 12/08/16 00:00 83 12/07/16 22:00 85 12/07/16 20:00 96 12/07/16 20:00 97.7 96 26 178/90 98 12/07/16 19:52 98 Nasal Cannula 2.00 12/07/16 18:00 90 -: 12/08/16 0321 12/08/16 0321 Physical Exam General Appearance: Well Developed, Well Nourished, No Acute Distress, Comfortable Eyes Eye Exam: Sclera White Pulmonary Resp Exam: Clear Bilaterally, Breath Sounds Equal, No Distress Cardiology CV Exam: Regular, Normal Sinus Rhythm, Good Perfusion Gastrointestinal/Abdomen GI Exam: Soft, Non-Tender Integumentary Skin Exam: Clear, Warm, Dry Extremeties Extremities Exam: No Edema Neurologic Neuro Exam: Alert, Awake, Speech Clear, Moving All Extremities Psychiatric Psych Exam: Appropriate Responses Assessment/Plan Discussed Condition With: Patient, Son Problem List: (1) ESRD (end stage renal disease) on dialysis Plan: Will continue on HD MWF as before. No emergent need for HD today. To continue on Fosrenol & Sensipar as outpatient. Calcitrol as ordered. Medications should be adjusted for the patient's ESRD. Avoid gadolinium. (2) Respiratory failure with hypoxia Plan: CXR reviewed. No overt failure or vascular congestion. Echo reviewed. Infiltrate--PNA? Will defer to CC (3) Hypertension Plan: Blood pressure significantly elevated. We'll add an angiotensin receptor adriane i.e. losartan 50 mg daily to his current hypertensive regimen. Outpatient follow-up of blood pressure per his primary university intern in [place] Speedy Johnson MD December 08, 2016 17:23
[2016-12-08] MEDS ORDERED: CALCITRIOL 0.25 MCG CAP PO ONE (17:30)
[2016-12-08] MEDS: LOSARTAN 50 MG TAB PO SCH (18:05)
[2016-12-08] MEDS: ATORVASTATIN 20 MG TAB PO SCH (21:55)
[2016-12-08] MEDS: CARVEDILOL 6.25 MG TAB PO SCH (21:55)
[2016-12-08] MEDS: amLODIPine BESYLATE 5 MG TAB PO SCH (21:56)
[2016-12-09] VITALS (26 sets, daily range): BP systolic 144–164; BP diastolic 78–91; PULSE 83–102; RESP 14–31; TEMP 97.8–98.3; O2SAT 91–100
[2016-12-09] MEDS: INSULIN ASPART SUPPLEMENTAL SCALE SQ SCH ×4 (01:00→18:35)
[2016-12-09] MEDS: RESP: ALBUTEROL 2.5 MG/IPRATROPIUM 0.5 MG NEB (SCH) NEB ×4 (01:19→12:06)
[2016-12-09] MEDS: CHLORHEXIDINE GLUCONATE 2 % 1 PACK (2 CLOTHS) TOP SCH (04:00)
[2016-12-09 06:00] LABS: AUTOMATED NEUTROPHIL # 3.7 TH/MM3 (1.8-7.7); BASOPHIL % 0.5 % (0.0-2.0); EOSINOPHIL # 0.2 TH/MM3 (0-0.4); EOSINOPHIL % 2.9 % (0.0-4.0); HEMATOCRIT 29.4 % (39.0-51.0); HEMO FLAGS DIFF FINAL; LYMPHOCYTE # 1.3 TH/MM3 (1.0-4.8); MEAN CELL VOLUME 82.8 FL (80.0-100.0); MEAN CORPUSCULAR HEMOGLOBIN 26.9 PG (27.0-34.0); MEAN CORPUSCULAR HGB CONC 32.5 % (32.0-36.0); MONO % 11.4 % (0.0-8.0); NEUT % 63.2 % (16.0-70.0); PLATELET COUNT 164 TH/MM3 (150-450); RED BLOOD COUNT 3.54 MIL/MM3 (4.50-5.90); WHITE BLOOD COUNT 5.8 TH/MM3 (4.0-11.0)
[2016-12-09 06:26] LABS: BICARBONATE 33.7 MEQ/L (21.0-32.0); POTASSIUM 3.7 MEQ/L (3.5-5.1)
--- NOTE | 2016-12-09 08:11 | HHI.PR ---
Subjective Remarks This is a pleasant 66 y/o Male who developed shortness of breath while on HD, Intubated and in Intensive care where he continues, transferred to hospitalist group, after extubation. seen in his bedroom in the presence of his Ex Arcadio and nurse Miss Zee , patient wants to go home, he developed volume overload probable was the mechanism of his Respiratory Failure, at this time continue Hemodialysis, awaiting final by Nephrology specialist, also will need to follow CXR for possible Pneumonia. Objective Vital Signs Date Time Temp Pulse Resp B/P Pulse Ox O2 Delivery O2 Flow Rate FiO2 12/09/16 04:00 94 12/09/16 04:00 98.2 94 18 144/78 96 12/09/16 00:00 94 12/09/16 00:00 98.1 94 21 146/83 92 12/08/16 20:52 96 21 12/08/16 20:00 99.1 113 29 162/95 96 12/08/16 20:00 113 12/08/16 16:00 102 12/08/16 16:00 99.3 12/08/16 12:15 100 41 204/101 97 12/08/16 12:15 100 12/08/16 12:10 98 25 181/92 97 12/08/16 12:10 98 12/08/16 12:10 98 12/08/16 12:10 98 12/08/16 12:00 91 12/08/16 12:00 91 46 178/88 97 12/08/16 12:00 91 12/08/16 12:00 91 12/08/16 11:45 83 20 186/87 97 12/08/16 11:45 83 12/08/16 11:45 83 12/08/16 11:45 83 12/08/16 11:30 84 19 178/91 100 12/08/16 11:30 84 12/08/16 11:30 84 12/08/16 11:30 84 12/08/16 11:15 84 12/08/16 11:15 84 12/08/16 11:15 84 12/08/16 11:15 84 21 165/79 95 12/08/16 11:00 85 12/08/16 11:00 85 12/08/16 11:00 85 18 166/80 94 12/08/16 11:00 85 12/08/16 10:45 89 12/08/16 10:45 89 12/08/16 10:45 89 12/08/16 10:45 89 25 177/86 97 12/08/16 10:30 90 12/08/16 10:30 90 12/08/16 10:30 90 28 181/86 96 12/08/16 10:30 90 12/08/16 10:16 84 12/08/16 10:16 84 18 177/83 96 12/08/16 10:16 84 12/08/16 10:16 84 12/08/16 10:15 89 12/08/16 10:15 89 12/08/16 10:15 89 24 189/94 96 12/08/16 10:15 89 12/08/16 10:00 76 12/08/16 10:00 76 45 161/73 96 12/08/16 10:00 76 12/08/16 10:00 76 12/08/16 09:45 80 39 164/77 96 12/08/16 09:45 80 12/08/16 09:45 80 12/08/16 09:45 80 12/08/16 09:30 78 39 177/83 97 12/08/16 09:30 78 12/08/16 09:30 78 12/08/16 09:30 78 12/08/16 09:15 76 12/08/16 09:15 76 18 175/84 96 12/08/16 09:15 76 12/08/16 09:15 76 12/08/16 09:00 79 16 162/78 95 12/08/16 09:00 79 12/08/16 09:00 79 12/08/16 09:00 79 12/08/16 08:45 81 19 160/82 94 12/08/16 08:45 81 12/08/16 08:45 81 12/08/16 08:45 81 12/08/16 08:30 81 12/08/16 08:30 81 18 169/84 100 12/08/16 08:30 81 12/08/16 08:30 81 12/08/16 08:17 94 21 12/08/16 08:15 85 20 170/83 95 12/08/16 08:15 85 12/08/16 08:15 85 12/08/16 08:15 85 I/O 12/08/16 12/08/16 12/08/16 12/09/16 12/09/16 12/09/16 07:00 15:00 23:00 07:00 15:00 23:00 Intake Total 120 ml 672 ml 300 ml 240 ml Output Total 0 ml 1500 ml 0 ml Balance 120 ml -828 ml 300 ml 240 ml Intake Oral 120 ml 520 ml 300 ml 240 ml IV Total 0 ml 152 ml 0 ml Output Urine Total 0 ml 0 ml Hemodialysis 1500 ml # Bowel Movements 0 0 Result Diagram: 12/09/16 0348 12/09/16 0348 Imaging Last Impressions Chest X-Ray 12/07/16 0000 Signed Impressions: Service Date/Time: Wednesday, December 07, 2016 05:53 - CONCLUSION: New left lower lobe infiltrate and left effusion. Eb Bonner Jr., MD Procedures Orotracheal Intubation and Extubation Other Results Laboratory Tests Test 12/07/16 12/07/16 12/07/16 12/07/16 00:50 02:36 09:01 12:53 Nasal Screen MRSA (PCR) MRSA NOT DETECTED Prothrombin Time 11.6 SEC Prothromb Time International 1.0 RATIO Ratio Magnesium Level 1.9 MG/DL Total Bilirubin 0.4 MG/DL Aspartate Amino Transf 18 U/L (AST/SGOT) Alanine Aminotransferase 19 U/L (ALT/SGPT) Alkaline Phosphatase 88 U/L Total Protein 6.2 GM/DL Total Creatine Kinase 88 U/L Troponin I 0.08 NG/ML Blood Gas Puncture Site RT RADIAL Blood Gas Patient Temperature 98.6 Blood Gas HCO3 26 mmol/L Blood Gas Base Excess 2.8 mmol/L Blood Gas Oxygen Saturation 95 % Arterial Blood pH 7.46 Arterial Blood Partial 38 mmHg Pressure CO2 Arterial Blood Partial 101 mmHg Pressure O2 Arterial Blood Oxygen Content 13.3 Vol % Arterial Blood 1.8 % Carboxyhemoglobin Arterial Blood Methemoglobin 1.3 % Blood Gas Hemoglobin 9.8 G/DL Oxygen Delivery Device VENTILATOR Blood Gas Ventilator Setting CPAP/10/+5 Blood Gas Inspired Oxygen 35 % Test 12/07/16 12/08/16 12/09/16 16:26 03:21 03:48 25-Hydroxy Vitamin D Total 8.3 ng/ML Parathyroid Hormone (Intact) 675.0 PG/ML Hepatitis B Surface Antigen NEGATIVE Hepatitis C Antibody NEGATIVE Iron Level 40 MCG/DL Total Iron Binding Capacity 162 MCG/DL Percent Iron Saturation 24.6 % Ferritin 776 NG/ML White Blood Count 5.8 TH/MM3 Red Blood Count 3.54 MIL/MM3 Hemoglobin 9.5 GM/DL Hematocrit 29.4 % Mean Corpuscular Volume 82.8 FL Mean Corpuscular Hemoglobin 26.9 PG Mean Corpuscular Hemoglobin 32.5 % Concent Red Cell Distribution Width 17.0 % Platelet Count 164 TH/MM3 Mean Platelet Volume 8.7 FL Neutrophils (%) (Auto) 63.2 % Lymphocytes (%) (Auto) 22.0 % Monocytes (%) (Auto) 11.4 % Eosinophils (%) (Auto) 2.9 % Basophils (%) (Auto) 0.5 % Neutrophils # (Auto) 3.7 TH/MM3 Lymphocytes # (Auto) 1.3 TH/MM3 Monocytes # (Auto) 0.7 TH/MM3 Eosinophils # (Auto) 0.2 TH/MM3 Basophils # (Auto) 0.0 TH/MM3 CBC Comment DIFF FINAL Differential Comment Sodium Level 138 MEQ/L Potassium Level 3.7 MEQ/L Chloride Level 96 MEQ/L Carbon Dioxide Level 33.7 MEQ/L Anion Gap 8 MEQ/L Blood Urea Nitrogen 24 MG/DL Creatinine 8.62 MG/DL Estimat Glomerular Filtration 8 ML/MIN Rate Random Glucose 98 MG/DL Calcium Level 9.3 MG/DL Phosphorus Level 4.1 MG/DL Albumin 2.7 GM/DL Objective Remarks GENERAL: No acute distress. SKIN: Warm and dry. HEAD: Normocephalic. EYES: No scleral icterus. No injection or drainage. NECK: Supple, trachea midline. No JVD or lymphadenopathy. CARDIOVASCULAR: Regular rate and rhythm without murmurs, gallops, or rubs. RESPIRATORY: Breath sounds equal bilaterally. No accessory muscle use. GASTROINTESTINAL: Abdomen soft, non-tender, nondistended. MUSCULOSKELETAL: No cyanosis, or edema. BACK: Nontender without obvious deformity. No CVA tenderness. EXTREMITIES: No clubbing cyanosis or edema Medications and IVs Current Medications Medications (Trade) Dose Ordered Sig/[place] Route Start Time Stop Time Status Last Admin (NS Flush) 2 ml UNSCH PRN .XX 12/06/16 21:30 (NS Flush) 2 ml BID .XX 12/07/16 09:00 12/08/16 21:00 (Tylenol) 650 mg Q6H PRN PO 12/06/16 21:30 (Morphine Inj) 2 mg Q2H PRN IV 12/06/16 21:30 (Zofran Inj) 4 mg Q6H PRN IV 12/06/16 21:30 (Reglan Inj) 10 mg Q6H PRN IV 12/06/16 21:30 (Colace Liq) 100 mg Q12HR G-TUBE 12/06/16 21:30 12/08/16 12:12 (Heparin Inj) 5,000 units Q12H SQ 12/06/16 22:00 12/08/16 21:56 Miscellaneous Information 1 Q361D XX 12/06/16 21:30 12/06/16 21:30 (Chlorhexidine 2% Cloth) 3 pack Taper DAILY@04 TOP 12/07/16 04:00 12/03/17 03:59 12/07/16 04:00 (Chlorhexidine 2% Cloth) 3 pack UNSCH PRN TOP 12/06/16 21:30 (D50w (Vial) Inj) 25 ml UNSCH PRN IV PUSH 12/06/16 23:45 12/07/16 06:22 (Glucagon Inj) 1 mg UNSCH PRN OTHER 12/06/16 23:45 (NovoLOG SUPPLEMENTAL SCALE) 1 Q6H SQ 12/07/16 13:00 Hydralazine HCl 10 mg 10 mg Q6H PRN IV PUSH 12/07/16 09:00 12/08/16 12:52 Ceftriaxone Sodium 1000 mg/ Sodium Chloride 100 ml @ 200 mls/hr Q24H IV 12/07/16 09:00 12/08/16 12:12 (NS 1000 ml Inj) 1,000 ml @ 0 mls/hr Q0M PRN IV 12/07/16 14:37 Heparin Sodium (Porcine) 8000 units 8,000 units UNSCH PRN IVF 12/07/16 14:45 Sodium Chloride 1,000 ml @ 200 mls/hr Q5H PRN IV 12/07/16 14:37 (NS 1000 ml Inj) 1,000 ml @ 0 mls/hr Q0M PRN IV 12/07/16 14:37 (Mannitol Inj) 12.5 gm UNSCH PRN IV 12/07/16 14:45 (Albumin 25% Inj) 25 gm UNSCH PRN IV 12/07/16 14:45 (NS Flush) 5 ml UNSCH PRN IV FLUSH 12/07/16 14:45 (Heparin Inj) UNSCH PRN .XX 12/07/16 14:45 (Gentamicin (Dialysis) Inj) 20 mg UNSCH PRN IV 12/07/16 14:45 (Zofran Inj) 4 mg UNSCH PRN IV 12/07/16 14:45 (Tylenol) 650 mg UNSCH PRN PO 12/07/16 14:45 (Benadryl) 25 mg UNSCH PRN PO 12/07/16 14:45 (Nitrostat Sl) 0.4 mg UNSCH PRN SL 12/07/16 14:45 (Catapres) 0.1 mg UNSCH PRN PO 12/07/16 14:45 (Gelfoam 12 Mm/7 Mm Top) 1 foam UNSCH PRN TOP 12/07/16 14:45 12/08/16 12:25 (Norvasc) 5 mg BID PO 12/08/16 21:00 12/08/16 21:56 (Lipitor) 20 mg HS PO 12/08/16 21:00 12/08/16 21:55 (Coreg) 6.25 mg BID PO 12/08/16 21:00 12/08/16 21:55 (Fosrenol Chew) 1,000 mg TIDPC CHEW 12/08/16 13:30 12/08/16 18:02 (Sensipar) 60 mg DAILY PO 12/09/16 09:00 (Nitroglycerin 2% Oint) 2 inch Q6HR PRN TOPICAL 12/08/16 11:00 (Cozaar) 50 mg DAILY PO 12/08/16 17:30 12/08/16 18:05 A/P Assessment and Plan 1. Accelerated Hypertension, Echocardiogram EF 50-55%, Moderate AR, Mild MR better control. 2. Hyperlipidemia on Statins. 3. Shortness of breath, probable Volume Overload, Status post VDRF 4. GERD on Zantac 5. ESRD on [place] 6. Anemia secondary to Chronic Kidney Disease. 7. Pneumonia on Rocephin day #3 asked for new CXR DVT GI prophylaxis - Subcutaneous heparin and Pepcid Discharge Planning Expected by later today or in am tomorrow if okay with Nephrology specialist. Keith Hernandes MD December 09, 2016 08:11
[2016-12-09] MEDS: DOCUSATE SODIUM 100 MG/10 ML UDC G-TUBE SCH ×2 (09:00→20:21)
[2016-12-09] MEDS: CARVEDILOL 6.25 MG TAB PO SCH ×2 (09:57→20:24)
[2016-12-09] MEDS: amLODIPine BESYLATE 5 MG TAB PO SCH ×2 (09:57→20:23)
[2016-12-09] MEDS: LANTHANUM CARBONATE 500 MG CHEWABLE TABLET CHEW SCH ×3 (09:57→18:33)
[2016-12-09] MEDS: LOSARTAN 50 MG TAB PO SCH (09:57)
[2016-12-09] MEDS: HEPARIN SODIUM - SQ 10,000 UNITS/ML VIAL SQ SCH ×2 (09:57→20:24)
[2016-12-09] MEDS: CINACALCET HYDROCHLORIDE 30 MG TAB PO SCH (09:57)
[2016-12-09] MEDS: cefTRIAXone INJ 1,000 MG in SODIUM CHLORIDE 0.9% INJ 100 ML IV SCH (09:58)
--- NOTE | 2016-12-09 11:33 | RADRPT ---
EXAM DATE/TIME: 12/09/2016 11:08 [place] COMPARISON: No previous studies available for comparison. INDICATIONS : Evaluate for pneumonia. MEDICAL HISTORY : None. SURGICAL HISTORY : None. ENCOUNTER: Subsequent ACUITY: 3 days PAIN SCORE: 0/10 LOCATION: Bilateral chest FINDINGS: PA and lateral views of the chest demonstrate the lungs to be symmetrically aerated without evidence of mass, infiltrate or effusion. The cardiomediastinal contours are unremarkable. Osseous structure s are intact. CONCLUSION: No acute disease. Juvencio Lopez MD on December 09, 2016 at 11:31 Board Certified Radiologist. This report was verified electronically.
[2016-12-09] MEDS: SODIUM CHLORIDE 0.9% FLUSH 10 ML FLUSH SCH ×2 (13:14→20:23)
--- NOTE | 2016-12-09 17:10 | HHI.NPPN ---
Subjective History of Present Illness The patient is a 66 yo AA male who was EVAC'd to the [facility] emergency room 12/06/16 after his regularly scheduled HD as he developed sudden shortness of breath. Upon arrival to the ED, he was intubated and transported to [facility] for further care. He says he had his regular scheduled HD this past Tuesday for an uneventful session. Denies any recently missed treatments and states that his typical UF is 1-2L. He typically dialyzes at [facility] in [place] and has been on HD x12 years. He has minimal UOP. His BP has been elevated recently-- no recent changes in medications to his knowledge. Ex- and son present during exam. Interval History Pt feeling much better today Denies SOB Eating well Ready to go home (Pastora Crow) Objective Data Data 12/08/16 12/09/16 19:00 07:00 Intake Total 672 ml 540 ml Output Total 1500 ml 0 ml Balance -828 ml 540 ml Intake Oral 520 ml 540 ml IV Total 152 ml 0 ml Output Urine Total 0 ml Hemodialysis 1500 ml # Bowel Movements 0 Vital Signs Date Time Temp Pulse Resp B/P Pulse Ox O2 Delivery O2 Flow Rate FiO2 12/09/16 15:00 97.8 85 16 154/84 95 12/09/16 13:00 84 16 94 12/09/16 12:45 89 21 96 12/09/16 12:30 85 21 94 12/09/16 12:23 90 23 155/85 98 12/09/16 12:15 83 22 100 12/09/16 12:00 85 12/09/16 12:00 98.3 85 20 97 12/09/16 11:45 89 22 95 12/09/16 11:30 98 29 91 12/09/16 10:45 99 21 95 12/09/16 10:30 101 26 93 12/09/16 10:15 102 31 12/09/16 10:00 95 12/09/16 10:00 95 24 164/91 95 12/09/16 09:45 93 19 94 12/09/16 09:30 92 22 154/83 95 12/09/16 09:15 85 17 100 12/09/16 09:02 95 12/09/16 09:00 86 21 158/90 96 12/09/16 08:45 89 22 96 12/09/16 08:30 84 16 147/85 96 12/09/16 08:15 91 22 94 12/09/16 08:00 98.1 86 14 162/82 96 12/09/16 08:00 85 12/09/16 04:00 94 12/09/16 04:00 98.2 94 18 144/78 96 12/09/16 00:00 94 12/09/16 00:00 98.1 94 21 146/83 92 12/08/16 20:52 96 21 12/08/16 20:00 99.1 113 29 162/95 96 12/08/16 20:00 113 (Pastora Crow) -: 12/09/16 0348 12/09/16 0348 Medication Review Current Medications Medications (Trade) Dose Ordered Sig/[place] Route Start Time Stop Time Status Last Admin (NS Flush) 2 ml UNSCH PRN .XX 12/06/16 21:30 (NS Flush) 2 ml BID .XX 12/07/16 09:00 12/09/16 13:14 (Tylenol) 650 mg Q6H PRN PO 12/06/16 21:30 (Morphine Inj) 2 mg Q2H PRN IV 12/06/16 21:30 (Zofran Inj) 4 mg Q6H PRN IV 12/06/16 21:30 (Reglan Inj) 10 mg Q6H PRN IV 12/06/16 21:30 (Colace Liq) 100 mg Q12HR G-TUBE 12/06/16 21:30 12/08/16 12:12 (Heparin Inj) 5,000 units Q12H SQ 12/06/16 22:00 12/09/16 09:57 Miscellaneous Information 1 Q361D XX 12/06/16 21:30 12/06/16 21:30 (Chlorhexidine 2% Cloth) 3 pack Taper DAILY@04 TOP 12/07/16 04:00 12/03/17 03:59 12/07/16 04:00 (Chlorhexidine 2% Cloth) 3 pack UNSCH PRN TOP 12/06/16 21:30 (D50w (Vial) Inj) 25 ml UNSCH PRN IV PUSH 12/06/16 23:45 12/07/16 06:22 (Glucagon Inj) 1 mg UNSCH PRN OTHER 12/06/16 23:45 (NovoLOG SUPPLEMENTAL SCALE) 1 Q6H SQ 12/07/16 13:00 Hydralazine HCl 10 mg 10 mg Q6H PRN IV PUSH 12/07/16 09:00 12/08/16 12:52 Ceftriaxone Sodium 1000 mg/ Sodium Chloride 100 ml @ 200 mls/hr Q24H IV 12/07/16 09:00 12/09/16 09:58 (NS 1000 ml Inj) 1,000 ml @ 0 mls/hr Q0M PRN IV 12/07/16 14:37 Heparin Sodium (Porcine) 8000 units 8,000 units UNSCH PRN IVF 12/07/16 14:45 Sodium Chloride 1,000 ml @ 200 mls/hr Q5H PRN IV 12/07/16 14:37 (NS 1000 ml Inj) 1,000 ml @ 0 mls/hr Q0M PRN IV 12/07/16 14:37 (Mannitol Inj) 12.5 gm UNSCH PRN IV 12/07/16 14:45 (Albumin 25% Inj) 25 gm UNSCH PRN IV 12/07/16 14:45 (NS Flush) 5 ml UNSCH PRN IV FLUSH 12/07/16 14:45 (Heparin Inj) UNSCH PRN .XX 12/07/16 14:45 (Gentamicin (Dialysis) Inj) 20 mg UNSCH PRN IV 12/07/16 14:45 (Zofran Inj) 4 mg UNSCH PRN IV 12/07/16 14:45 (Tylenol) 650 mg UNSCH PRN PO 12/07/16 14:45 (Benadryl) 25 mg UNSCH PRN PO 12/07/16 14:45 (Nitrostat Sl) 0.4 mg UNSCH PRN SL 12/07/16 14:45 (Catapres) 0.1 mg UNSCH PRN PO 12/07/16 14:45 (Gelfoam 12 Mm/7 Mm Top) 1 foam UNSCH PRN TOP 12/07/16 14:45 12/08/16 12:25 (Norvasc) 5 mg BID PO 12/08/16 21:00 12/09/16 09:57 (Lipitor) 20 mg HS PO 12/08/16 21:00 12/08/16 21:55 (Coreg) 6.25 mg BID PO 12/08/16 21:00 12/09/16 09:57 (Fosrenol Chew) 1,000 mg TIDPC CHEW 12/08/16 13:30 12/09/16 13:14 (Sensipar) 60 mg DAILY PO 12/09/16 09:00 12/09/16 09:57 (Nitroglycerin 2% Oint) 2 inch Q6HR PRN TOPICAL 12/08/16 11:00 (Cozaar) 50 mg DAILY PO 12/08/16 17:30 12/09/16 09:57 (Pastora Crow) Physical Exam General Appearance: Well Developed, Well Nourished, No Acute Distress, Comfortable ( Pastora Crow) Eyes Eye Exam: Sclera White (Pastora Crow) Pulmonary Resp Exam: Clear Bilaterally, Breath Sounds Equal, No Distress (Pastora Crow) Cardiology CV Exam: Regular, Normal Sinus Rhythm, Good Perfusion (Pastora Crow) Gastrointestinal/Abdomen GI Exam: Soft, Non-Tender (Pastora Crow) Integumentary Skin Exam: Clear, Warm, Dry (Pastora Crow) Extremeties Extremities Exam: No Edema (Pastora Crow) Neurologic Neuro Exam: Alert, Awake, Speech Clear, Moving All Extremities (Pastora Crow) Psychiatric Psych Exam: Appropriate Responses (Pastora Crow) Assessment/Plan Discussed Condition With: Patient, Son Problem List: (1) ESRD (end stage renal disease) on dialysis Plan: Will continue on HD MWF To continue on Fosrenol & Sensipar as outpatient. OK to be discharged today from renal standpoint. If no discharge planned until Tuesday, must have HD before discharge. Medications should be adjusted for the patient's ESRD. Avoid gadolinium. (2) Respiratory failure with hypoxia Plan: Likely related to PNA. CXR repeated today and appears resolved (3) Hypertension Plan: Continue on current regimen Outpatient follow-up of blood pressure per his primary gear technician in [place] (Pastora Crow) Plan The exam, history, and the medical decision-making described in the above note were completed with the assistance of the PA-C. I reviewed and agree with the findings presented. I attest that I had a [id number] encounter with the patient on the same day, and personally performed and documented my assessment and findings in the medical record. (Speedy Johnson MD) Pastora Crow December 09, 2016 17:10 Speedy Johnson MD Feb 01, 2017 13:25
[2016-12-09] MEDS: ATORVASTATIN 20 MG TAB PO SCH (20:23)
[2016-12-10] VITALS (7 sets, daily range): BP systolic 132–169; BP diastolic 60–96; PULSE 80–93; RESP 16–20; TEMP 97.5–98.7; O2SAT 92–98
[2016-12-10] MEDS: INSULIN ASPART SUPPLEMENTAL SCALE SQ SCH ×3 (00:16→13:00)
[2016-12-10] MEDS: RESP: ALBUTEROL 2.5 MG/IPRATROPIUM 0.5 MG NEB (SCH) NEB ×5 (02:22→11:53)
[2016-12-10] MEDS: CHLORHEXIDINE GLUCONATE 2 % 1 PACK (2 CLOTHS) TOP SCH (02:29)
[2016-12-10] MEDS: SODIUM CHLORIDE 0.9% FLUSH 10 ML FLUSH SCH (09:00)
[2016-12-10] MEDS: LANTHANUM CARBONATE 500 MG CHEWABLE TABLET CHEW SCH ×2 (09:02→13:57)
[2016-12-10] MEDS: HEPARIN SODIUM - SQ 10,000 UNITS/ML VIAL SQ SCH (10:00)
--- NOTE | 2016-12-10 10:51 | HHI.FF ---
Face to Face Verification Diagnosis: (1) Hypertension (2) ESRD (end stage renal disease) on dialysis (3) Respiratory failure with hypoxia (4) CHF (congestive heart failure) Physical Therapy Order: Evaluate and Treat, Improve ambulation, Strength and gait training Home Health Nursing Order: Medical education Signs/symptoms of disease process Medication education-adverse effect Nursing assessment with vital signs I have seen patient Adelfo Del Angel on 12/10/16. My clinical findings support the need for the requested home health care services because: Ltd mobility - disease progression Deconditioned w/ increased weakness I certify that my clinical findings support that this patient is homebound because: Unsafe to leave home unassisted Keith Hernandes MD December 10, 2016 10:51
[2016-12-10] MEDS ORDERED: SYMB160A INH (10:54)
[2016-12-10] MEDS ORDERED: COZA50TA PO (10:54)
[2016-12-10] MEDS ORDERED: AUGM500T7 PO (11:02)
--- NOTE | 2016-12-10 11:04 | HHI.PR ---
Subjective Remarks This is a pleasant 66 y/o Male who developed shortness of breath while on HD, Intubated and in Intensive care where he continues, transferred to hospitalist group, after extubation. seen in his bedroom in the presence of his Ex Arcadio and nurse Miss Zee , patient wants to go home, he developed volume overload probable was the mechanism of his Respiratory Failure, at this time continue Hemodialysis, awaiting final by Nephrology specialist, also will need to follow CXR for possible Pneumonia. 12/10: Seen in his bedroom improved condition, okay to discharge by nephrology specialist discussed with his son in the room. Mr. Shmuel Emanuel Objective Vital Signs Date Time Temp Pulse Resp B/P Pulse Ox O2 Delivery O2 Flow Rate FiO2 12/10/16 08:15 97 21 12/10/16 08:00 97.6 85 18 158/90 96 12/10/16 08:00 80 12/10/16 04:00 97.9 88 20 149/83 95 12/10/16 02:20 92 21 12/10/16 00:00 98.7 93 16 161/89 95 12/09/16 20:20 97.9 88 16 163/89 95 12/09/16 20:08 92 12/09/16 15:00 97.8 85 16 154/84 95 12/09/16 13:00 84 16 94 12/09/16 12:45 89 21 96 12/09/16 12:30 85 21 94 12/09/16 12:23 90 23 155/85 98 12/09/16 12:15 83 22 100 12/09/16 12:00 85 12/09/16 12:00 98.3 85 20 97 12/09/16 11:45 89 22 95 12/09/16 11:30 98 29 91 I/O 12/09/16 12/09/16 12/09/16 12/10/16 12/10/16 12/10/16 07:00 15:00 23:00 07:00 15:00 23:00 Intake Total 240 ml 650 ml 2 ml 0 ml Output Total 0 ml 0 ml Balance 240 ml 650 ml 2 ml 0 ml Intake Oral 240 ml 520 ml 0 ml IV Total 0 ml 130 ml 2 ml Output Urine Total 0 ml 0 ml # Voids 0 # Bowel Movements 0 0 0 Result Diagram: 12/09/16 0348 12/09/16 0348 Imaging Last Impressions Chest X-Ray 12/09/16 0000 Signed Impressions: Service Date/Time: November 11:08 - CONCLUSION: No acute disease. Juvencio Lopez MD Procedures Orotracheal Intubation and Extubation Other Results Laboratory Tests Test 12/07/16 12/07/16 12/07/16 12/07/16 00:50 02:36 09:01 12:53 Nasal Screen MRSA (PCR) MRSA NOT DETECTED Prothrombin Time 11.6 SEC Prothromb Time International 1.0 RATIO Ratio Magnesium Level 1.9 MG/DL Total Bilirubin 0.4 MG/DL Aspartate Amino Transf 18 U/L (AST/SGOT) Alanine Aminotransferase 19 U/L (ALT/SGPT) Alkaline Phosphatase 88 U/L Total Protein 6.2 GM/DL Total Creatine Kinase 88 U/L Troponin I 0.08 NG/ML Blood Gas Puncture Site RT RADIAL Blood Gas Patient Temperature 98.6 Blood Gas HCO3 26 mmol/L Blood Gas Base Excess 2.8 mmol/L Blood Gas Oxygen Saturation 95 % Arterial Blood pH 7.46 Arterial Blood Partial 38 mmHg Pressure CO2 Arterial Blood Partial 101 mmHg Pressure O2 Arterial Blood Oxygen Content 13.3 Vol % Arterial Blood 1.8 % Carboxyhemoglobin Arterial Blood Methemoglobin 1.3 % Blood Gas Hemoglobin 9.8 G/DL Oxygen Delivery Device VENTILATOR Blood Gas Ventilator Setting CPAP/10/+5 Blood Gas Inspired Oxygen 35 % Test 12/07/16 12/08/16 12/09/16 16:26 03:21 03:48 25-Hydroxy Vitamin D Total 8.3 ng/ML Parathyroid Hormone (Intact) 675.0 PG/ML Hepatitis B Surface Antigen NEGATIVE Hepatitis C Antibody NEGATIVE Iron Level 40 MCG/DL Total Iron Binding Capacity 162 MCG/DL Percent Iron Saturation 24.6 % Ferritin 776 NG/ML White Blood Count 5.8 TH/MM3 Red Blood Count 3.54 MIL/MM3 Hemoglobin 9.5 GM/DL Hematocrit 29.4 % Mean Corpuscular Volume 82.8 FL Mean Corpuscular Hemoglobin 26.9 PG Mean Corpuscular Hemoglobin 32.5 % Concent Red Cell Distribution Width 17.0 % Platelet Count 164 TH/MM3 Mean Platelet Volume 8.7 FL Neutrophils (%) (Auto) 63.2 % Lymphocytes (%) (Auto) 22.0 % Monocytes (%) (Auto) 11.4 % Eosinophils (%) (Auto) 2.9 % Basophils (%) (Auto) 0.5 % Neutrophils # (Auto) 3.7 TH/MM3 Lymphocytes # (Auto) 1.3 TH/MM3 Monocytes # (Auto) 0.7 TH/MM3 Eosinophils # (Auto) 0.2 TH/MM3 Basophils # (Auto) 0.0 TH/MM3 CBC Comment DIFF FINAL Differential Comment Sodium Level 138 MEQ/L Potassium Level 3.7 MEQ/L Chloride Level 96 MEQ/L Carbon Dioxide Level 33.7 MEQ/L Anion Gap 8 MEQ/L Blood Urea Nitrogen 24 MG/DL Creatinine 8.62 MG/DL Estimat Glomerular Filtration 8 ML/MIN Rate Random Glucose 98 MG/DL Calcium Level 9.3 MG/DL Phosphorus Level 4.1 MG/DL Albumin 2.7 GM/DL Objective Remarks GENERAL: No acute distress. SKIN: Warm and dry. HEAD: Normocephalic. EYES: No scleral icterus. No injection or drainage. NECK: Supple, trachea midline. No JVD or lymphadenopathy. CARDIOVASCULAR: Regular rate and rhythm without murmurs, gallops, or rubs. RESPIRATORY: Breath sounds equal bilaterally. No accessory muscle use. GASTROINTESTINAL: Abdomen soft, non-tender, nondistended. MUSCULOSKELETAL: No cyanosis, or edema. BACK: Nontender without obvious deformity. No CVA tenderness. EXTREMITIES: No clubbing cyanosis or edema Medications and IVs Current Medications Medications (Trade) Dose Ordered Sig/[place] Route Start Time Stop Time Status Last Admin (NS Flush) 2 ml UNSCH PRN .XX 12/06/16 21:30 (NS Flush) 2 ml BID .XX 12/07/16 09:00 12/10/16 09:00 (Tylenol) 650 mg Q6H PRN PO 12/06/16 21:30 (Morphine Inj) 2 mg Q2H PRN IV 12/06/16 21:30 (Zofran Inj) 4 mg Q6H PRN IV 12/06/16 21:30 (Reglan Inj) 10 mg Q6H PRN IV 12/06/16 21:30 (Colace Liq) 100 mg Q12HR G-TUBE 12/06/16 21:30 12/08/16 12:12 (Heparin Inj) 5,000 units Q12H SQ 12/06/16 22:00 12/09/16 20:24 Miscellaneous Information 1 Q361D XX 12/06/16 21:30 12/06/16 21:30 (Chlorhexidine 2% Cloth) 3 pack Taper DAILY@04 TOP 12/07/16 04:00 12/03/17 03:59 12/07/16 04:00 (Chlorhexidine 2% Cloth) 3 pack UNSCH PRN TOP 12/06/16 21:30 (D50w (Vial) Inj) 25 ml UNSCH PRN IV PUSH 12/06/16 23:45 12/07/16 06:22 (Glucagon Inj) 1 mg UNSCH PRN OTHER 12/06/16 23:45 (NovoLOG SUPPLEMENTAL SCALE) 1 Q6H SQ 12/07/16 13:00 Hydralazine HCl 10 mg 10 mg Q6H PRN IV PUSH 12/07/16 09:00 12/08/16 12:52 Ceftriaxone Sodium 1000 mg/ Sodium Chloride 100 ml @ 200 mls/hr Q24H IV 12/07/16 09:00 12/09/16 09:58 (NS 1000 ml Inj) 1,000 ml @ 0 mls/hr Q0M PRN IV 12/07/16 14:37 Heparin Sodium (Porcine) 8000 units 8,000 units UNSCH PRN IVF 12/07/16 14:45 Sodium Chloride 1,000 ml @ 200 mls/hr Q5H PRN IV 12/07/16 14:37 (NS 1000 ml Inj) 1,000 ml @ 0 mls/hr Q0M PRN IV 12/07/16 14:37 (Mannitol Inj) 12.5 gm UNSCH PRN IV 12/07/16 14:45 (Albumin 25% Inj) 25 gm UNSCH PRN IV 12/07/16 14:45 (NS Flush) 5 ml UNSCH PRN IV FLUSH 12/07/16 14:45 (Heparin Inj) UNSCH PRN .XX 12/07/16 14:45 (Gentamicin (Dialysis) Inj) 20 mg UNSCH PRN IV 12/07/16 14:45 (Zofran Inj) 4 mg UNSCH PRN IV 12/07/16 14:45 (Tylenol) 650 mg UNSCH PRN PO 12/07/16 14:45 (Benadryl) 25 mg UNSCH PRN PO 12/07/16 14:45 (Nitrostat Sl) 0.4 mg UNSCH PRN SL 12/07/16 14:45 (Catapres) 0.1 mg UNSCH PRN PO 12/07/16 14:45 (Gelfoam 12 Mm/7 Mm Top) 1 foam UNSCH PRN TOP 12/07/16 14:45 12/08/16 12:25 (Norvasc) 5 mg BID PO 12/08/16 21:00 12/09/16 20:23 (Lipitor) 20 mg HS PO 12/08/16 21:00 12/09/16 20:23 (Coreg) 6.25 mg BID PO 12/08/16 21:00 12/09/16 20:24 (Fosrenol Chew) 1,000 mg TIDPC CHEW 12/08/16 13:30 12/09/16 18:33 (Sensipar) 60 mg DAILY PO 12/09/16 09:00 12/09/16 09:57 (Nitroglycerin 2% Oint) 2 inch Q6HR PRN TOPICAL 12/08/16 11:00 (Cozaar) 50 mg DAILY PO 12/08/16 17:30 12/09/16 09:57 A/P Assessment and Plan 1. Accelerated Hypertension, Echocardiogram EF 50-55%, Moderate AR, Mild MR better control. 2. Hyperlipidemia on Statins. 3. Shortness of breath, probable Volume Overload, Status post VDRF 4. GERD on Zantac 5. ESRD on HD okay by Nephrology specialist for discharge. 6. Anemia secondary to Chronic Kidney Disease. 7. Pneumonia on Rocephin day #3 asked for new CXR discharge on Augmentin. DVT GI prophylaxis - Subcutaneous heparin and Pepcid Discharge Planning Discharge home. Keith Hernandes MD December 10, 2016 11:04
[2016-12-10] MEDS: GELATIN 12 MM/7 MM FOAM TOP PRN (11:27)
[2016-12-10] MEDS: CINACALCET HYDROCHLORIDE 30 MG TAB PO SCH (13:57)
[2016-12-10] MEDS: cefTRIAXone INJ 1,000 MG in SODIUM CHLORIDE 0.9% INJ 100 ML IV SCH (13:58)
[2016-12-10] MEDS: amLODIPine BESYLATE 5 MG TAB PO SCH (13:58)
[2016-12-10] MEDS: CARVEDILOL 6.25 MG TAB PO SCH (13:58)
[2016-12-10] MEDS: LOSARTAN 50 MG TAB PO SCH (13:59)
[2016-12-10] MEDS: DOCUSATE SODIUM 100 MG/10 ML UDC G-TUBE SCH (14:01)
--- NOTE | 2016-12-11 18:04 | HHI.DS ---
Discharge Summary Admission Date December 06, 2016 at 19:56 Discharge Date: December 10, 2016 Admitting Diagnosis End-stage renal disease on hemodialysis (1) CHF (congestive heart failure) ICD Code: I50.9 Diagnosis: Principal (2) Hypertension ICD Code: I10 Diagnosis: Principal (3) ESRD (end stage renal disease) on dialysis ICD Code: N18.6 Diagnosis: Principal (4) Respiratory failure with hypoxia ICD Code: J96.91 Diagnosis: Principal Procedures Endotracheal intubation and Extubation. Brief History - From Admission 66-year-old male presents for respiratory distress and failure. He has end-stage renal disease on dialysis and he had dialysis today. After resting comfortably at home he developed acute respiratory distress and respiratory failure. Ambulance service came to his house. Tried to administer BiPAP but was not successful in improving his respiratory distress. He was transported [place] emergency department for evaluation of respiratory failure. Upon arrival here in emergency room this patient was diaphoretic and could not speak in complete sentences. Obviously in respiratory distress. Both lungs showed decreased breath sounds. The patient was intubated by emergency department attending and transferred here for high level of care. CBC/BMP: 12/09/16 0348 12/09/16 0348 Significant Findings Laboratory Tests Test 12/09/16 03:48 Red Blood Count 3.54 MIL/MM3 (4.50-5.90) Hemoglobin 9.5 GM/DL (13.0-17.0) Hematocrit 29.4 % (39.0-51.0) Mean Corpuscular Hemoglobin 26.9 PG (27.0-34.0) Monocytes (%) (Auto) 11.4 % (0.0-8.0) Chloride Level 96 MEQ/L (98-107) Carbon Dioxide Level 33.7 MEQ/L (21.0-32.0) Blood Urea Nitrogen 24 MG/DL (7-18) Creatinine 8.62 MG/DL (0.60-1.30) Estimat Glomerular Filtration 8 ML/MIN (>89) Rate Albumin 2.7 GM/DL (3.4-5.0) Imaging Last Impressions Chest X-Ray 12/09/16 0000 Signed Impressions: Service Date/Time: November 11:08 - CONCLUSION: No acute disease. Juvencio Lopez MD PE at Discharge GENERAL: No acute distress. SKIN: Warm and dry. HEAD: Normocephalic. EYES: No scleral icterus. No injection or drainage. NECK: Supple, trachea midline. No JVD or lymphadenopathy. CARDIOVASCULAR: Regular rate and rhythm without murmurs, gallops, or rubs. RESPIRATORY: Breath sounds equal bilaterally. No accessory muscle use. GASTROINTESTINAL: Abdomen soft, non-tender, nondistended. MUSCULOSKELETAL: No cyanosis, or edema. BACK: Nontender without obvious deformity. No CVA tenderness. EXTREMITIES: No clubbing cyanosis or edema Transfer Summary Acetaminophen for fever CV: Hypertensive crisis Dyslipidemia 2-D echocardiogram revealed EF 50-55%. Moderate AR. Mild MR. Resume Coreg 6.25 twice a day Norvasc 5 mg by mouth twice a day As needed hydralazine/Nitropaste as clonidine Resp: Currently in room air. GI: Gastroesophageal reflux disease On Zantac 150 by mouth twice a day at home for gastroesophageal reflux disease. Renal diet : No [place] indicated Endo: Sliding-scale insulin if indicated Renal: End-stage renal disease on hemodialysis Resume Sensipar and phosphate lowering binder. Heme: Normocytic anemia with anemia of chronic kidney disease No indications for transfusion of blood products at this time ID: Currently on Rocephin day #2. FEN: Replace electrolytes as clinically indicated MSK: Out of bed/PT evaluate and treat Access - Peripheral IV Prophylax - GI - Zantac - DVT - SCD/heparin subcutaneous Critical Care: The total care time was 30 minutes. Time to perform other separately billable procedures was not included in the critical care time. Patient is stable from PICC standpoint. We'll assign care to hospitalist in a.m. 12/09. Transfer to floor Respiratory failure - Fluid overload - Probably diastolic dysfunction from uncontrolled hypertension - Mechanical ventilation - Probable dialysis tomorrow morning - SBT after dialysis Hypertension - Resume home meds - Cardene drip - SBP goal is 160 - Repeat 2-D echo ESRD - HD per division service manager Dyslipidemia - Resume home dose of statin DVT GI prophylaxis - Subcutaneous heparin and Pepcid Critical Care: The total critical care time was 35 minutes. Time to perform other separately billable procedures was not included in the critical care time. Hospital Course This is a pleasant 66 y/o Male who developed shortness of breath while on HD, Intubated and in Intensive care where he continues, transferred to hospitalist group, after extubation. seen in his bedroom in the presence of his Ex Arcadio and nurse Miss Zee , patient wants to go home, he developed volume overload probable was the mechanism of his Respiratory Failure, at this time continue Hemodialysis, awaiting final by Nephrology specialist, also will need to follow CXR for possible Pneumonia. 12/10: Seen in his bedroom improved condition, okay to discharge by nephrology specialist discussed with his son in the room. Mr. Shmuel Emanuel Assessment and Plan 1. Accelerated Hypertension, Echocardiogram EF 50-55%, Moderate AR, Mild MR added Losartan and will need to continue following with PCP and Nephrology to continue titration of medicines. 2. Hyperlipidemia on Statins. 3. Shortness of breath, probable Volume Overload, Status post VDRF, improved. 4. GERD on Zantac 5. ESRD on HD okay by Nephrology specialist for discharge. 6. Anemia secondary to Chronic Kidney Disease. 7. Pneumonia on Rocephin day #4 asked for new CXR discharge on Augmentin. has E Coli, Strep Pneumonia was on Rocephin for four days will continue Augmentin at home. DVT GI prophylaxis - Subcutaneous heparin and Pepcid Discharge Planning Discharge home on [facility] for PT and Skilled Nurse. Pt Condition on Discharge: Good Discharge Disposition: Disch w/ Home Health Serv Discharge Time: > 30 minutes Discharge Instructions DIET: Follow Instructions for: Heart Healthy Diet Speech Therapy-Diet Recommends: Mechanical Soft Activities you can perform: Regular-No Restrictions Other Activity Instructions: Follow Physical therapy recommendations at discharge. Keith Hernandes MD December 11, 2016 18:04
== END 2016-12-10 15:17 | disposition home health service (06) | DRG 208 ==
LOC: NEDDLT 19:55 → HIMW 19:56 → N04B 12-09 15:08
PROVIDERS: ADMIT Internal Medicine; ATTEND Internal Medicine
PROC: 5A1935Z Respiratory Ventilation, Less than 24 Consecutive Hours (ICD-10-PCS; principal; 2016-12-06)
PROC: 5A1D60Z (ICD-10-PCS; 2016-12-08)
DX: J96.00 Acute respiratory failure, unspecified whether with hypoxia or hypercapnia (principal); J15.4 Pneumonia due to other streptococci; N18.6 End stage renal disease; I12.0 Hypertensive chronic kidney disease with stage 5 chronic kidney disease or end stage renal disease; I50.9 Heart failure, unspecified; Z99.2 Dependence on renal dialysis; D63.1 Anemia in chronic kidney disease; E78.5 Hyperlipidemia, unspecified; K21.9 Gastro-esophageal reflux disease without esophagitis; Z23 Encounter for immunization
CPT/HCPCS: 31500; 36600; 51702; 71010; 71020; 76937; 80048; 80053; 80069; 82306; 82550; 82728; 82805; 82948; 83540; 83550; 83735; 83880; 83970; 84100; 84484; 85025; 85379; 85610; 86403; 86803; 87070; 87077; 87147; 87186; 87205; 87340; 87641; 90471; 90732; 90935; 93005; 93306; 94002; 94003; 94640; 94664; 96365; 99281; G0009; J0330; J0360; J0696; J1644; J7030